=== PATIENT | female | born 1960 | race Caucasian/White ===

== ENCOUNTER 2017-01-20 20:23 | Emergency (ER) | payer SELFPAY ==
[~2017-01-20] VITALS: Ht 167.6 cm; Wt 94.3 kg
[~2017-01-20 20:23] MED LIST: Vicodin,Norco 5/325 PO
[2017-01-20 21:06] LABS: HEMATOCRIT 40.6 % (36.0-46.0); MCH 28.1 PG (29.0-34.0); MCV 85.1 FL (83-99); MEAN PLAT.VOLUME 10.5 uM^3 (9.5-12.4); PLATELET COUNT 269 K/uL (156-360); RBC DIS.WIDTH-CV 13.5 % (11.8-14.6); RBC DIS.WIDTH-SD 42.4 % (39-53); RED BLOOD COUNT 4.77 M/uL (3.80-5.20); WHITE BLOOD COUNT 7.8 K/uL (4.1-10.2)
[2017-01-20 21:20] LABS: CHLORIDE 106 mEq/L (99-109); POTASSIUM 3.9 mEq/L (3.7-5.4); SODIUM 141 mEq/L (136-147)
[2017-01-20 21:22] LABS: GLUCOSE 124 mg/dL (70-99)
[2017-01-20 21:23] LABS: ANION GAP 9 MEQ/L (2-14)
[2017-01-20 21:24] LABS: TOTAL BILIRUBIN 0.8 mg/dL (0.0-1.0)
[2017-01-20 21:25] LABS: ALKALINE PHOSPHATASE 111 IU/L (3-129)
[2017-01-20 21:26] LABS: GFR ESTIMATE (CALCULATED) > 59 mL/min/
[2017-01-20 21:27] LABS: TROP-I INTERPRETATION NEGATIVE; TROPONIN-I < 0.01 ng/mL (0.0-0.30); UREA NITROGEN (BUN) 17 mg/dL (9-23)
[2017-01-20 22:15] LABS: CREATINE KINASE 42 IU/L (1-294)
[2017-01-20 23:22] VITALS: BP 136/78
== END 2017-01-20 23:23 | disposition home or self-care (01) ==
LOC: EME 20:23
PROVIDERS: Physician Assistant
DX: R60.0 Localized edema (principal); R07.9 Chest pain, unspecified; M79.605 Pain in left leg; M79.604 Pain in right leg; Z88.6 Allergy status to analgesic agent
CPT/HCPCS: 71020; 80053; 82550; 84484; 85027; 93005; 93971; 99281; 99284